=== PATIENT | female | born 1940 | race Caucasian/White ===

== ENCOUNTER 2018-06-11 21:00 | Emergency (ER) | payer MEDICARE, BC ==
[~2018-06-11] VITALS: Ht 157.5 cm; Wt 81.6 kg
[2018-06-11] MEDS ORDERED: AMLO-150 PO (21:32)
[2018-06-11] MEDS ORDERED: APIX5TAB PO (21:32)
[2018-06-11] MEDS ORDERED: METO25TA91 PO (21:32)
[2018-06-11 22:07] VITALS: BP 149/57
== END 2018-06-11 22:13 | disposition home or self-care (01) ==
LOC: ED 22:00
DX: I10 Essential (primary) hypertension (principal); I48.91 Unspecified atrial fibrillation
CPT/HCPCS: 93005; 99283